=== PATIENT | female | born 1970 | race Caucasian/White ===

== ENCOUNTER 2016-04-18 12:56 | Emergency (ER) | payer OTHER ==
[~2016-04-18] VITALS: Ht 175.3 cm; Wt 106.4 kg
[~2016-04-18 12:56] MED LIST: ALBU8.5H2 IH; FLUT16SP2 NS; GABA-502 PO; INSU100I13 SUBQ; LORA0.5T PO; LORA10CA PO; METF10002 PO; PARO10TA2 PO
[2016-04-18 12:59] VITALS: BP 134/88; PULSE 91; RESP 20; O2SAT 95
--- NOTE | 2016-04-18 13:23 | ED.REPORT ---
HPI-Abd Pain F 40 and Over Date of Service Apr 18, 2016 ED Provider: Alma Castrejon MD 46 year old female with a hx of pancreatitis, DM2, appendectomy and cholecystectomy presents to the ED due to a constant dull RLQ pain for 6 days. This morning she developed nausea and vomiting x3. Additionally, she complains of fever, chills, cough and vaginal discharge. She has not been taking her medications as directed. States that her BGL is always high. Pt is somewhat tearful and states that she has been having difficulties with her . She denies SI. Nursing Notes Stated Complaint: RIGHT ABDOMINAL SIDE SWOLLEN/PAIN Chief Complaint: Female Abdominal Pain Nursing Notes Reviewed: Yes Allergies: Coded Allergies: Contrast Media (Verified Allergy, Intermediate, Rash,Itching,, 09/19/15) Scheduled Fluticasone Propionate (Flonase Nasal) 16 Gm Sumner.susp 1 SPRAY NS DAILY Gabapentin (Gabapentin) 300 Mg Capsule 900 MG PO TID Insulin Glargine (Lantus U100 Solostar Insulin Pen) 100 Unit/1 Ml Insuln.pen 45 UNIT SUBQ BID Loratadine (Claritin) 10 Mg Capsule 10 MG PO DAILY Metformin (Metformin) 1,000 Mg Tablet 1,500 MG PO BIDWM Paroxetine (Paroxetine) 10 Mg Tablet 10 MG PO DAILY Scheduled PRN Albuterol HFA (Proair HFA) 8.5 Gm Hfa.aer.ad 2 PUFFS IH Q6 PRN PRN For Wheezing Lorazepam (Lorazepam) 0.5 Mg Tablet 0.5 MG PO TID PRN PRN For Insomnia Lorazepam (Lorazepam) 0.5 Mg Tablet 0.5 MG PO TID PRN PRN For Anxiety Metoclopramide (Metoclopramide) 10 Mg Tablet 10 MG PO QID PRN PRN nausea/ gastroparesis General Time Seen by MD: 13:21 Chief Complaint Abdominal pain Hx Obtained From: Patient Arrived By: Walk-in Sudden in Onset?: No Onset Occurred: 6 days ago Symptom Duration: Since onset Progression since Onset: Gradually worsening Location: : RLQ Quality: Painful Severity: Current: Moderate Associated with: Reports: Fever, Nausea, Vomiting Pertinent Negative: Relieved by nothing Past Medical History Past Medical History Notes: PCP: Dr. Medina Past Medical History Migraines Chronic pain PTSD Pneumonia Bipolar Anxiety Sleep apnea Hiatal hernia Reports: Asthma, Diabetes mellitus, GERD, Hyperlipidemia Reports: Depression Past Surgical History Umbilical hernia repair Carpal tunnel Right shoulder surgery Sinus surgery Cervical fusion Bunionectomy on right foot Left shoulder Reports: Appendectomy, Cholecystectomy, Tonsillectomy Family History Father was an alcoholic and has history of blood clots. Grandmother - heart disease Smoking History Current Every Day Smoker Social History Alcohol Use: Denies alcohol use Drug Use: THC Other Social History: , Local resident Occupation no work or school Ambulatory Status Independent Review of Systems Constitutional: Reports: Chills, Fever Respiratory: Denies: Shortness of breath Cardiovascular: Denies: Chest pain GI: Reports: Abdominal pain, Diarrhea, Nausea, Vomiting Female: Reports: Vaginal discharge Complete sys rev & neg: except as marked. Psychiatric: Reports: Depression, Denies: Suicidal ideation Physical Exam Vital Signs Vital Signs (First) Date Time Temp Pulse Resp B/P Pulse Ox O2 Delivery O2 Flow Rate FiO2 04/18/16 12:59 37.2 91 20 134/88 95 04/18/16 14:49 Room Air Initial VS: Reviewed Head / Eyes: Atraumatic, Normocephalic, PERRL ENT: Conjunctiva normal, No scleral icterus Neck: Full range of motion Extremities: Vascular intact, Neuro intact, No swelling (No edema) Skin: Warm, Dry, No cyanosis Neurologic: Alert, Oriented, Nonfocal General/Constitutional: Awake, Alert Respiratory / Chest: Breath sounds NL, Breath sounds = bilat, No respiratory distress, No rales, No rhonchi, No wheezing, No stridor Cardiovascular: Heart rate NL, Regular rhythm, Heart sounds NL, Peripheral circulation NL Abdomen: Soft, No guarding, No rebound Tenderness/Guarding/Rebound: Positive: Tender RUQ..., Tender epigastric Bowel Sounds / Distention: Positive: Bowel sounds hypoactive Back: Full range of motion, No CVA tenderness Psychiatric: Not suicidal flat/tearful affect Interpretation & Diagnostics Lab Results Interpretation Result Diagram: 04/18/16 1320 04/18/16 1320 Test 04/18/16 13:20 04/18/16 13:30 White Blood Count 10.0th/mm3 (3.8-10.1) Red Blood Count 4.83mil/mm3 (3.90-5.20) Hemoglobin 14.9g/dL (12.0-15.6) Hematocrit 43.0% (35.0-46.0) Mean Corpuscular Volume 89.0fL (81-100) Mean Corpuscular Hemoglobin 30.8pg (27.0-35.0) Mean Corpuscular Hemoglobin Concent 34.7% (32.0-37.0) Red Cell Distribution Width 12.2% (12.3-15.4) Platelet Count 293bil/L (150-400) Neutrophils (%) (Auto) 62.3% (40-74) Lymphocytes (%) (Auto) 28.7% (14-46) Monocytes (%) (Auto) 6.2% (4-12) Eosinophils (%) (Auto) 2.0% (0-5) Basophils (%) (Auto) 0.4% (0-3) Hold Blue Top Tube Received (Received) Sodium Level 131mEq/L (134-144) Potassium Level 4.5mEq/L (3.5-5.2) Chloride Level 92mEq/L (97-108) Carbon Dioxide Level 23mmol/L (18-29) Blood Urea Nitrogen 12mg/dL (6-24) Creatinine 0.77mg/dL (0.57-1.00) Estimat Glomerular Filtration Rate 115mL/min (>59) Glucose Level 484mg/dL (60-99) Calcium Level 9.0mg/dL (8.5-10.1) Magnesium Level 1.8mg/dL (1.6-2.6) Total Bilirubin 0.7mg/dL (0.0-1.2) Aspartate Amino Transf (AST/SGOT) 24U/L (0-50) Alanine Aminotransferase (ALT/SGPT) 28U/L (0-32) Alkaline Phosphatase 88U/L (25-150) Total Protein 7.5g/dL (6.4-8.4) Albumin 4.0g/dL (3.4-5.0) Lipase 7U/L (13-60) Hold Red Top Tube Received (Received) Hold Carrera Top Tube Received (Received) Hold Urine Received (Received) Lab Results Interpretation: Glucose and trace blood in Udip General Lab Results Interp 1: Labs reviewed CT Abd / Pelvis Interpretation IMPRESSION: 1. No acute intra-abdominal abnormality to correlate with patient's right quadrant pain. Specifically, no evidence of hydronephrosis or nephrolithiasis. Dictated by: Marcelino Echavarria M.D. on 04/18/2016 at 14:49 Study type: Abdominal CT no contrast Interpretation / Wet Read by: Interpret - Radiologist Re-Eval/Medical Decision Re-Evaluation/Progress : Time of Eval: 15:52 Re-Evaluation/Progress Note: Updated pt of lab and imaging results. Pt also complains of a vaginal yeast infection at this time. Discussed plan for discharge and follow up. All questions addressed. Counseled Regarding: Diagnosis, Lab results, Need for follow-up, When/why to return to ED Discharge & Departure Primary Impression: Abdominal pain Abdominal location: lower abdomen Qualified Code: R10.30 - Lower abdominal pain, unspecified Additional Impressions: Hyperglycemia Depression Depression Type: unspecified Qualified Code: F32.9 - Major depressive disorder, single episode, unspecified Medical non-compliance Gastroparesis Vaginal yeast infection Acute situational disturbance Disposition: Home Discharge Condition All VS Reviewed: Yes Condition: Improved Patient Instructions: Acute Abdominal Pain (ED), Diabetic gastroparesis (DC), Major Depression (DC) Additional Instructions: Your workup today is reassuring. The CT scan was normal. Your lab work was reassuring aside from you elevated glucose. Make sure that you are taking the Lantus and Metformin as prescribed. Your elevated blood sugar could be causing your pain. You can use Reglan 10mg every 6 hours for nausea and vomiting. I suspect you have a component of gastroparesis from your diabetes and this can help in that respect as well. For depression, you are taking Paxil 30mg morning and night. Make sure that you are also taking the Lamictal with this. At your next appointment with Dr. Noe you can discuss increasing your medications. You will benefit from talking with a counselor. For anxiety, you can take 0.5 mg of Ativan 1-2 times a day. With the possibility of incarceration for your and losing your housing, the anxiety certainly makes sense. Take the Diflucan daily for 3 days for vaginal yeast infections. Make sure your continues to use topical medication at the same time. This will NOT go away until your sugars are in better control. Gool luck!! Referrals: Lia Bronson MD (PCP) Alicja Noe DO Scribe Attestation Portions of this note were transcribed by Kenya Chiu. I, (Dr. Castrejon) personally performed the history, physical exam and medical decision-making; I reviewed and confirmed the accuracy of the information in the transcribed note. Signed by: Kenya Chiu. 04/18/2016, 1524 copies to: Alicja Noe Shawna L MD Apr 18, 2016 13:22 Kenya Chiu Apr 18, 2016 13:31
[2016-04-18 13:27] LABS: BASOPHILS % (AUTO) 0.4 % (0-3); MONOCYTES % (AUTO) 6.2 % (4-12); Mean Corpuscular Hemoglobin 30.8 pg (27.0-35.0); NEUTROPHILS % (AUTO) 62.3 % (40-74); Platelet Count 293 bil/L (150-400)
[2016-04-18] MEDS ORDERED: 0.9% Sodium Chloride 1,000 ML IV ONE (13:38)
[2016-04-18] MEDS ORDERED: Ondansetron 2 mg/mL 2 mL Inj IVPUSH ONE (13:40)
[2016-04-18 13:52] LABS: Magnesium 1.8 mg/dL (1.6-2.6)
[2016-04-18 14:49] VITALS: BP 121/71; PULSE 82; RESP 18; O2SAT 94
--- NOTE | 2016-04-18 14:49 | DRSVH ---
PROCEDURE: CT ABDOMEN AND PELVIS WITHOUT CONTRAST ([id number]) INDICATIONS: RUQ abdominal pain TECHNIQUE: After the administration of oral contrast, 5 mm thick sections acquired from the diaphragms to the sy mphysis. 5 mm coronal and sagittal reformats were performed. For radiation dose reduction, the foll owing was used: automated exposure control, adjustment of mA and/or kV according to patient size. COMPARISON: None. FINDINGS: Image quality: Excellent. ABDOMEN: Lung bases: Lung bases are clear. Heart size is normal. Solid organs: Liver and spleen are normal in size. Gallbladder is surgically absent. There is mild fatty atrophy of the pancreas. No adrenal nodules. Kidneys demonstrate hydronephrosis or nephrolit hiasis. There is minimal nonspecific perinephric stranding bilaterally. Peritoneum and bowel: Bowel loops demonstrate normal wall thickness and caliber. No pericecal infla mmatory change to suggest appendicitis. No free fluid or air. Nodes and vessels: No retroperitoneal or mesenteric adenopathy by size criteria. Aorta and inferior vena cava are normal in size. Miscellaneous: No ventral hernias. PELVIS: Genitourinary: Bladder wall thickness is normal. Miscellaneous: No inguinal hernias or adenopathy. Bones: No suspicious bony lesions. No vertebral body compression fractures. IMPRESSION: 1. No acute intra-abdominal abnormality to correlate with patient's right quadrant pain. Specifical ly, no evidence of hydronephrosis or nephrolithiasis. Dictated by: Marcelino Echavarria M.D. on 04/18/2016 at 14:49 Approved by: Marcelino Echavarria M.D. on 04/18/2016 at 14:49
[2016-04-18] MEDS: HYDROmorphone 0.5 mg/0.5 mL iSecure Syringe IVPUSH PRN ×2 (14:50→15:28)
[2016-04-18] MEDS ORDERED: METO10TA3 PO (16:31)
[2016-04-18] MEDS ORDERED: LORA0.5T PO (16:31)
[2016-04-18 16:40] VITALS: BP 137/99; PULSE 92; RESP 22
== END 2016-04-18 16:35 | disposition home or self-care (01) ==
LOC: SED 12:56
DX: R10.30 Lower abdominal pain, unspecified (principal); E11.65 Type 2 diabetes mellitus with hyperglycemia; F32.9 Major depressive disorder, single episode, unspecified; E11.43 Type 2 diabetes mellitus with diabetic autonomic (poly)neuropathy; K31.84 Gastroparesis; B37.3 Candidiasis of vulva and vagina; F43.0 Acute stress reaction; J45.909 Unspecified asthma, uncomplicated; F17.200 Nicotine dependence, unspecified, uncomplicated; Z79.4 Long term (current) use of insulin; Z79.51 Long term (current) use of inhaled steroids; Z86.39 Personal history of other endocrine, nutritional and metabolic disease; Z91.14 Patient's other noncompliance with medication regimen
CPT/HCPCS: 36415; 74176; 80053; 81025; 83690; 83735; 85025; 96361; 96374; 96375; 96376; 99285; J1170; J2060; J2405; J7030

== ENCOUNTER 2016-04-26 12:07 | Emergency (ER) | payer OTHER ==
[~2016-04-26] VITALS: Ht 176.6 cm; Wt 106.4 kg
[~2016-04-26 12:07] MED LIST changes: +METO10TA3 PO
[2016-04-26 12:10] VITALS: BP 149/101; PULSE 104; RESP 16; O2SAT 97
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
[2016-04-26] MEDS ORDERED: HYDR-4003 PO (13:46)
[2016-04-26 14:39] VITALS: BP 139/93; PULSE 94; RESP 18; O2SAT 95
== END 2016-04-26 13:58 | disposition home or self-care (01) ==
LOC: SED 12:07
DX: T74.11XA Adult physical abuse, confirmed, initial encounter (principal); S06.0X0A Concussion without loss of consciousness, initial encounter; S00.83XA Contusion of other part of head, initial encounter; S10.93XA Contusion of unspecified part of neck, initial encounter; Y04.8XXA Assault by other bodily force, initial encounter; Y07.01 Husband, perpetrator of maltreatment and neglect; Y92.009 Unspecified place in unspecified non-institutional (private) residence as the place of occurrence of the external cause; Y93.89 Activity, other specified; Y99.8 Other external cause status; E11.9 Type 2 diabetes mellitus without complications; E78.5 Hyperlipidemia, unspecified; K21.9 Gastro-esophageal reflux disease without esophagitis; J45.909 Unspecified asthma, uncomplicated; F17.200 Nicotine dependence, unspecified, uncomplicated; Z87.01 Personal history of pneumonia (recurrent); Z79.4 Long term (current) use of insulin; Z79.84 Long term (current) use of oral hypoglycemic drugs; Z91.041 Radiographic dye allergy status

== ENCOUNTER 2016-05-02 13:13 | Emergency (ER) | payer OTHER ==
[~2016-05-02] VITALS: Ht 177.8 cm; Wt 106.4 kg
[~2016-05-02 13:13] MED LIST changes: +HYDR-4003 PO
[2016-05-02 13:24] VITALS: BP 135/94; PULSE 92; RESP 15; O2SAT 99
== END 2016-05-02 15:10 | disposition left against medical advice (07) ==
LOC: SED 13:13
DX: Z53.21 Procedure and treatment not carried out due to patient leaving prior to being seen by health care provider (principal)